=== PATIENT | female | born 1990 | race Caucasian/White ===

== ENCOUNTER 2017-12-24 10:34 | Emergency (ER) | payer SELFPAY ==
[~2017-12-24] VITALS: Ht 172.7 cm; Wt 104.5 kg
[~2017-12-24 10:34] MED LIST: AMOXICILLIN500 MG PO; CEPHALEXIN500 MG PO; CIPROFLOXACN500 MG PO; LOTRISONE EX; SUBOXONE1 MI1 PO; TORADOL PO
[2017-12-24 11:44] LABS: URINE BILIRUBIN - DIPSTICK NEGATIVE (NEGATIVE); URINE BLOOD DIPSTICK NEGATIVE (NEGATIVE); URINE COLOR YELLOW; URINE GLUCOSE - DIPSTICK NEGATIVE (NEGATIVE); URINE KETONE NEGATIVE (NEGATIVE); URINE LEUK ESTERASE NEGATIVE (NEGATIVE); URINE NITRITE - DIPSTICK NEGATIVE (Negative); URINE PH 5.5 (4.5-8.0); URINE PROTEIN - DIPSTICK NEGATIVE (NEG-TRACE); URINE SPECIFIC GRAVITY >=1.030; URINE UROBILINOGEN - DIPSTICK 0.2 E.U./dL (0.2)
[2017-12-24 11:49] LABS: HCG SERUM/URINE (NEG/POS) NEGATIVE (NEGATIVE)
[2017-12-24 11:50] LABS: URINE CLARITY CLEAR
[2017-12-24] MEDS ORDERED: METRONIDAZOL500 MG PO (11:57)
[2017-12-24 12:45] VITALS: BP 119/87
== END 2017-12-24 12:45 | disposition home or self-care (01) | DRG 392 ==
LOC: ED 10:34
PROVIDERS: Emergency Medicine
DX: R10.2 Pelvic and perineal pain (principal); N93.9 Abnormal uterine and vaginal bleeding, unspecified; F17.210 Nicotine dependence, cigarettes, uncomplicated; Z20.2 Contact with and (suspected) exposure to infections with a predominantly sexual mode of transmission

== ENCOUNTER 2018-10-22 23:21 | Emergency (ER) | payer OTHER ==
[~2018-10-22] VITALS: Ht 175.3 cm; Wt 117.2 kg
[~2018-10-22 23:21] MED LIST changes: +METRONIDAZOL500 MG PO
[2018-10-23] MEDS ORDERED: AMOXICILLIN500 MG PO (00:35)
[2018-10-23 00:45] VITALS: BP 121/70
== END 2018-10-23 00:45 | disposition home or self-care (01) ==
LOC: ED 23:21
DX: J02.0 Streptococcal pharyngitis (principal); F17.210 Nicotine dependence, cigarettes, uncomplicated; R50.9 Fever, unspecified

== ENCOUNTER 2018-11-07 19:03 | Emergency (ER) | payer OTHER ==
[~2018-11-07] VITALS: Ht 175.3 cm; Wt 119.0 kg
--- NOTE | 2018-11-07 20:52 | NUR ---
BREATHING TREATMENT GIVEN WITH DENNIS QUILESONEB. BREATHING TECH. FOR GOOD DEPOSITION TO THE LUNGS.
[2018-11-07] MEDS ORDERED: VENTOLIN HFA IN (21:28)
[2018-11-07] MEDS ORDERED: TESSALON PER100 MG PO (21:28)
[2018-11-07 21:58] VITALS: BP 119/70
== END 2018-11-07 21:55 | disposition home or self-care (01) ==
LOC: ED 19:03
DX: J06.9 Acute upper respiratory infection, unspecified (principal); F17.200 Nicotine dependence, unspecified, uncomplicated

== ENCOUNTER 2019-05-27 | Emergency (ER) | payer OTHER ==
[~2019-05-27] MED LIST changes: +TESSALON PER100 MG PO; +VENTOLIN HFA IN
[2019-05-27] MEDS ORDERED: TESSALON PER100 MG PO (18:28)
== END 2019-05-27 18:40 | disposition home or self-care (01) ==
DX: J06.9 Acute upper respiratory infection, unspecified (principal); F17.210 Nicotine dependence, cigarettes, uncomplicated

== ENCOUNTER 2019-06-12 | Emergency (ER) | payer OTHER ==
[2019-06-12 23:32] LABS: HEMATOCRIT 38.2 % (37.0-47.0); HEMOGLOBIN 11.9 g/dl (12.0-16.0); IMMATURE GRANULOCYTES 0.3 % (0.0-5.0); MEAN CELL VOLUME 88.2 fL CALC (80.0-100.0); MEAN CORPUSCULAR HGB 27.5 pG CALC (26.0-32.0); MEAN CORPUSCULAR HGB CONC 31.2 g/L CALC (32.0-36.0); NEUT# 7.21 thou/uL (2.00-7.15); RED BLOOD COUNT 4.33 mill/uL (4.20-5.60); RED CELL DISTRI WIDTH 13.2 % (11.5-15.5)
[2019-06-12 23:55] LABS: ALBUMIN 3.8 g/dL (3.2-5.0); ALKALINE PHOSPHATASE 68 u/l (38-126); ANION GAP 10 (6-22 (CALC)); BILIRUBIN, TOTAL 0.3 mg/dL (0.0-1.4); BUN 12 mg/dL (7-17); BUN/CREATININE RATIO 12 (12-20 (CALC)); CARBON DIOXIDE 29 mmol/l (22-30); CHLORIDE 105 mmol/l (95-108); GFR > 60 ML/MIN (>=60 (CALC)); GFR FOR AFR.AMER. > 60 ML/MIN (>=60 (CALC)); POTASSIUM 3.5 mmol/l (3.5-5.1); SGOT/AST 30 u/l (14-36); SODIUM 139 mmol/l (137-146); TOTAL PROTEIN 6.9 g/dL (6.3-8.2)
[2019-06-13 00:07] LABS: MYOGLOBIN 18 ng/mL (0 - 62)
[2019-06-13 00:40] LABS: URINE BILIRUBIN - DIPSTICK NEGATIVE (NEGATIVE); URINE BLOOD DIPSTICK NEGATIVE (NEGATIVE); URINE COLOR YELLOW; URINE GLUCOSE - DIPSTICK NEGATIVE (NEGATIVE); URINE KETONE NEGATIVE (NEGATIVE); URINE LEUK ESTERASE NEGATIVE (NEGATIVE); URINE NITRITE - DIPSTICK NEGATIVE (Negative); URINE PH 6.5 (4.5-8.0); URINE PROTEIN - DIPSTICK NEGATIVE (NEG-TRACE); URINE UROBILINOGEN - DIPSTICK 0.2 E.U./dL (0.2)
[2019-06-13] MEDS ORDERED: ROBITUSSIN AC10 ML PO (01:04)
== END 2019-06-13 01:20 | disposition home or self-care (01) ==
PROVIDERS: Emergency Medicine
DX: J06.9 Acute upper respiratory infection, unspecified (principal); F17.210 Nicotine dependence, cigarettes, uncomplicated

== ENCOUNTER 2019-09-15 11:12 | Emergency (ER) | payer OTHER ==
[~2019-09-15 11:12] MED LIST changes: +ROBITUSSIN AC10 ML PO
[2019-09-15] MEDS ORDERED: MOTRIN800 MG PO (13:46)
[2019-09-15 13:49] VITALS: BP 138/77
== END 2019-09-15 14:06 | disposition home or self-care (01) ==
LOC: ED 11:12
DX: S93.401A Sprain of unspecified ligament of right ankle, initial encounter (principal); F17.210 Nicotine dependence, cigarettes, uncomplicated; X50.0XXA Overexertion from strenuous movement or load, initial encounter; Y92.008 Other place in unspecified non-institutional (private) residence as the place of occurrence of the external cause

== ENCOUNTER 2020-07-23 11:56 | Emergency (ER) | payer OTHER ==
[~2020-07-23] VITALS: Ht 175.3 cm; Wt 103.0 kg
[~2020-07-23 11:56] MED LIST changes: +MOTRIN800 MG PO
[2020-07-23 13:08] LABS: HEMATOCRIT 42.5 % (37.0-47.0); IMMATURE GRANULOCYTES 0.4 % (0.0-5.0); MEAN CELL VOLUME 83.2 fL CALC (80.0-100.0); MEAN CORPUSCULAR HGB 25.4 pG CALC (26.0-32.0); MEAN CORPUSCULAR HGB CONC 30.6 g/dL CAL (32.0-36.0); NEUT# 8.92 thou/uL (2.00-7.15); RED BLOOD COUNT 5.11 mill/uL (4.20-5.60); RED CELL DISTRI WIDTH 15.7 % (11.5-15.5)
[2020-07-23 13:20] LABS: ALBUMIN 4.7 g/dL (3.2-5.0); ALKALINE PHOSPHATASE 79 u/l (38-126); ANION GAP 13 (6-22 (CALC)); BILIRUBIN, TOTAL 0.6 mg/dL (0.0-1.4); BUN 11 mg/dL (7-17); BUN/CREATININE RATIO 17 (12-20 (CALC)); CARBON DIOXIDE 27 mmol/l (22-30); CHLORIDE 102 mmol/l (95-108); CREATININE 0.6 mg/dL (0.5-1.0); GFR > 60 ML/MIN (>=60 (CALC)); GFR FOR AFR.AMER. > 60 ML/MIN (>=60 (CALC)); POTASSIUM 3.8 mmol/l (3.5-5.1); SGOT/AST 37 u/l (14-36); SODIUM 138 mmol/l (137-146); TOTAL PROTEIN 7.9 g/dL (6.3-8.2)
[2020-07-23] MEDS ORDERED: ZPAK PO (14:26)
[2020-07-23] MEDS ORDERED: GUAIFENESIN AC PO (14:26)
[2020-07-23 14:29] VITALS: BP 145/83
== END 2020-07-23 14:47 | disposition home or self-care (01) ==
LOC: ED 11:56
DX: J40 Bronchitis, not specified as acute or chronic (principal); F17.210 Nicotine dependence, cigarettes, uncomplicated; Z20.822 Contact with and (suspected) exposure to COVID-19

== ENCOUNTER 2020-09-16 09:14 | Emergency (ER) | payer OTHER ==
[~2020-09-16] VITALS: Ht 175.3 cm; Wt 96.0 kg
[~2020-09-16 09:14] MED LIST changes: +GUAIFENESIN AC PO; +ZPAK PO
[2020-09-16 09:41] VITALS: BP 127/73
== END 2020-09-16 09:41 | disposition left against medical advice (07) ==
LOC: ED 09:14
DX: R10.2 Pelvic and perineal pain (principal); R82.90 Unspecified abnormal findings in urine; F17.210 Nicotine dependence, cigarettes, uncomplicated; Z91.19 Patient's noncompliance with other medical treatment and regimen

== ENCOUNTER 2020-12-22 14:52 | Emergency (ER) | payer OTHER | END 2020-12-22 16:20 | disposition left against medical advice (07) | DRG 951 | LOC: ED 14:52 → LWOBS 16:20 | DX: Z53.21 Procedure and treatment not carried out due to patient leaving prior to being seen by health care provider (principal) ==

== ENCOUNTER 2021-05-10 13:11 | Emergency (ER) | payer OTHER ==
[~2021-05-10] VITALS: Ht 175.3 cm; Wt 95.0 kg
[2021-05-10 14:45] VITALS: BP 109/52
== END 2021-05-10 14:42 | disposition left against medical advice (07) ==
LOC: ED 13:11
DX: O9A.212 Injury, poisoning and certain other consequences of external causes complicating pregnancy, second trimester (principal); S51.842A Puncture wound with foreign body of left forearm, initial encounter; O99.322 Drug use complicating pregnancy, second trimester; F19.10 Other psychoactive substance abuse, uncomplicated; O99.332 Smoking (tobacco) complicating pregnancy, second trimester; F17.200 Nicotine dependence, unspecified, uncomplicated; X58.XXXA Exposure to other specified factors, initial encounter; Z91.19 Patient's noncompliance with other medical treatment and regimen; Z3A.24 24 weeks gestation of pregnancy; F11.10 Opioid abuse, uncomplicated

== ENCOUNTER 2021-05-10 15:19 | Emergency (ER) | payer OTHER ==
[~2021-05-10] VITALS: Ht 175.3 cm; Wt 95.0 kg
[2021-05-10 15:25] VITALS: BP 118/59
== END 2021-05-10 17:22 | disposition home or self-care (01) ==
LOC: ED 15:19
DX: O9A.212 Injury, poisoning and certain other consequences of external causes complicating pregnancy, second trimester (principal); S51.842A Puncture wound with foreign body of left forearm, initial encounter; O99.322 Drug use complicating pregnancy, second trimester; F11.10 Opioid abuse, uncomplicated; O99.332 Smoking (tobacco) complicating pregnancy, second trimester; F17.200 Nicotine dependence, unspecified, uncomplicated; X58.XXXA Exposure to other specified factors, initial encounter; Z3A.24 24 weeks gestation of pregnancy

== ENCOUNTER 2022-06-07 02:56 | Emergency (ER) | payer OTHER | END 2022-06-07 03:04 | disposition left against medical advice (07) | DRG 951 | LOC: ED 02:56 → LWOBS 03:04 | DX: Z53.21 Procedure and treatment not carried out due to patient leaving prior to being seen by health care provider (principal) ==